=== PATIENT | female | born 1985 | race Caucasian/White ===

== ENCOUNTER 2019-12-21 16:22 | Inpatient (IN) ==
[2019-12-21] MEDS ORDERED: hydrALAZINE 20 MG/1 ML VIAL IV PRN (18:25)
[2019-12-21] MEDS ORDERED: SIMETHICONE CHEW 125 MG TABLET PO PRN (18:25)
[2019-12-21] MEDS ORDERED: ALUMINUM/MAGNES/SIMETH MAX STR 30 ML UDCUP PO PRN (18:25)
[2019-12-21] MEDS ORDERED: ACETAMINOPHEN 325 MG TABLET PO PRN (18:25)
[2019-12-21] MEDS ORDERED: diphenhydrAMINE CAP 25 MG CAPSULE PO PRN (18:25)
[2019-12-21] MEDS ORDERED: PROMETHAZINE 25 MG/1 ML VIAL IM PRN (18:25)
[2019-12-21] MEDS ORDERED: guaiFENesin/DM ER 600-30 MG TABLET PO PRN (18:25)
[2019-12-21] MEDS ORDERED: DEXTROSE 50% 25 GM/50 ML VIAL IV PRN (18:25)
[2019-12-21] MEDS ORDERED: GLUCAGON 1 MG VIAL IM PRN (18:25)
[2019-12-21] MEDS ORDERED: CALCIUM CARBONATE CHEW 500 MG TABLET PO PRN (18:25)
[2019-12-21] MEDS ORDERED: NICOTINE 21 MG/24 HR PATCH TRANSDERM PRN (18:25)
[2019-12-21 19:08] LABS: Eosinophils % 1.8 % (0.00-10.9); Hematocrit 33.6 VOL% (35.7-47.0); Hemoglobin 10.5 GM/DL (12.0-16.0); Immature Granulocytes % 3.6 %; Immature Granulocytes Absolute 0.04 #; Lymphocytes # 0.5 10*3/uL (1.4-4.0); Lymphocytes % 42.9 % (21.3-54.2); Mean Corpuscular HGB Conc 31.3 GM/DL (32-36); Mean Corpuscular Volume 81.4 FL (87-102); Mean Platelet Volume 10.3 FL (9.6-12.0); Monocytes % 6.3 % (1.7-12.7); Neutrophils % 45.4 % (38.7-73.9); Platelet Count 234 T/CUMM (130-400); Red Blood Count 4.13 MC/CUMM (3.8-5.5); Red Cell Distribution Width 15.5 % (9.3-17.3); White Blood Count 1.1 T/CUMM (4-12)
[2019-12-21 19:24] LABS: Osmolality,Calculated 272.7 MOS/KG (273-304)
[2019-12-21 19:30] LABS: Band Neutrophils 8 % (0-10); Eosinophils 2 % (0-10); Lymphocytes 47 % (20-55); Segmented Neutrophils 38 % (50-85); Total Cells Counted 100
[2019-12-21 19:31] LABS: Anisocytosis Slight; Burr Cells Slight; Microcytosis Slight; Platelet Estimate Normal; Poikilocytosis Slight; Reactive Lymphocytes Slight
[2019-12-21] MEDS ORDERED: POTASSIUM CHLORIDE RIDER 10 MEQ in PREMIX 1 EACH IV PRN (19:49)
[2019-12-21] MEDS ORDERED: cefTRIAXone 1,000 MG in SYRINGE 1 EACH IV SCH (20:00)
[2019-12-21] MEDS: SODIUM CHLORIDE 0.9% 1,000 ML IV SCH (21:32)
[2019-12-21] MEDS: DOCUSATE SODIUM 100 MG CAPSULE PO SCH (21:33)
[2019-12-21] MEDS: MEROPENEM 500 MG in SODIUM CHLORIDE 0.9% 100 ML IV SCH (21:33)
[2019-12-21] MEDS: ENOXAPARIN 40 MG/0.4 ML SYRINGE SUBCUT SCH (21:33)
[2019-12-21] MEDS: VANCOMYCIN INJ 1,000 MG in SODIUM CHLORIDE 0.9% 250 ML IV SCH (23:45)
[2019-12-22] MEDS: MEROPENEM 500 MG in SODIUM CHLORIDE 0.9% 100 ML IV SCH ×4 (04:15→20:47)
[2019-12-22 05:11] LABS: Apearance,Urine CLOUDY (Clear); Bacteria,Urine Occasional /HPF (Few); Bilirubin,Urine Negative (Negative); Blood, Urine Large mg/dL (Negative); Glucose,Urine (UA) Negative (Negative); Ketones,Urine Negative (Negative); Mucus,Urine Occasional /LPF (Occasional); Nitrite,Urine Negative (Negative); Protein,Urine 30 MG/DL; RBC,Urine 2 /HPF (0-4); Squamous Epithelial Cell,Urine Occasional /HPF (0-10); Urine Specific Gravity 1.018 (1.001-1.035); WBC,Urine 23 /HPF (0-6)
[2019-12-22 05:12] LABS: Urine Color Yellow (Yellow)
[2019-12-22 05:36] LABS: Barbiturates Screen,Urine Negative (Negative); Benzodiazepines Screen,Urine Negative (Negative); Cannabinoid Screen,Urine Negative (Negative); Opiate Screen,Urine Negative (Negative); Phencyclidine Screen,Urine Negative (Negative)
[2019-12-22 05:44] LABS: Basophils % 0.6 % (0.0-0.8); Eosinophils # 0.2 10*3/uL (0.0-0.87); Eosinophils % 8.6 % (0.00-10.9); Hemoglobin 9.3 GM/DL (12.0-16.0); Immature Granulocytes % 1.7 %; Immature Granulocytes Absolute 0.03 #; Lymphocytes # 0.6 10*3/uL (1.4-4.0); Lymphocytes % 35.4 % (21.3-54.2); Mean Corpuscular HGB Conc 32.1 GM/DL (32-36); Mean Platelet Volume 10.8 FL (9.6-12.0); Monocytes % 4.6 % (1.7-12.7); Neutrophils % 49.1 % (38.7-73.9); Platelet Count 199 T/CUMM (130-400); Red Blood Count 3.58 MC/CUMM (3.8-5.5); Red Cell Distribution Width 15.7 % (9.3-17.3); White Blood Count 1.8 T/CUMM (4-12)
[2019-12-22 06:20] LABS: Band Neutrophils 15 % (0-10); Eosinophils 3 % (0-10); Lymphocytes 38 % (20-55); Platelet Estimate Normal; Segmented Neutrophils 41 % (50-85); Total Cells Counted 100
[2019-12-22 06:21] LABS: Hypochromasia Slight
[2019-12-22 06:22] LABS: Bilirubin,Total 2.4 MG/DL (0.2-1.0); Calcium 6.7 MG/DL (8.5-10.1); Total Protein 5.1 G/DL (6.4-8.3)
[2019-12-22] MEDS: SODIUM CHLORIDE 0.9% 1,000 ML IV SCH ×3 (08:38→20:47)
[2019-12-22] MEDS: DOCUSATE SODIUM 100 MG CAPSULE PO SCH ×2 (10:10→20:48)
[2019-12-22] MEDS: PANTOPRAZOLE 40 MG TABLET PO SCH (10:10)
[2019-12-22] MEDS: VANCOMYCIN INJ 1,000 MG in SODIUM CHLORIDE 0.9% 250 ML IV SCH ×2 (11:20→21:48)
[2019-12-22 12:14] LABS: HIV Antigen/Antibody Result Nonreactive (Nonreactive); Hepatitis B Core IgM Quant 0.23 Index; Hepatitis B Surface Ag Quant < 0.10 Index; Hepatitis B Surface Ag Result Negative (Negative); Hepatitis C Virus Ab Quant 0.08 Index; Hepatitis C Virus Ab Result Negative (Negative)
[2019-12-22] MEDS: ALPRAZolam 0.25 MG TABLET PO PRN (14:25)
[2019-12-22] MEDS: POTASSIUM CHLORIDE 20 MEQ TABLET PO PRN ×4 (15:26→22:49)
[2019-12-22] MEDS: ONDANSETRON 4 MG/2 ML VIAL IV PRN (18:10)
[2019-12-22] MEDS: ENOXAPARIN 40 MG/0.4 ML SYRINGE SUBCUT SCH (20:47)
[2019-12-22] MEDS: ZALEPLON 5 MG CAPSULE PO PRN (22:49)
[2019-12-23] MEDS: MEROPENEM 500 MG in SODIUM CHLORIDE 0.9% 100 ML IV SCH ×4 (02:23→20:47)
[2019-12-23] MEDS: SODIUM CHLORIDE 0.9% 1,000 ML IV SCH ×3 (03:26→21:37)
[2019-12-23 06:31] LABS: Basophils % 0.6 % (0.0-0.8); Eosinophils # 0.1 10*3/uL (0.0-0.87); Eosinophils % 2.6 % (0.00-10.9); Hematocrit 30.5 VOL% (35.7-47.0); Hemoglobin 9.5 GM/DL (12.0-16.0); Immature Granulocytes % 0.6 %; Immature Granulocytes Absolute 0.02 #; Lymphocytes # 1.5 10*3/uL (1.4-4.0); Lymphocytes % 48.2 % (21.3-54.2); Mean Corpuscular HGB Conc 31.1 GM/DL (32-36); Mean Corpuscular Volume 79.8 FL (87-102); Mean Platelet Volume 11.3 FL (9.6-12.0); Monocytes % 4.9 % (1.7-12.7); Neutrophils % 43.1 % (38.7-73.9); Platelet Count 224 T/CUMM (130-400); Red Blood Count 3.82 MC/CUMM (3.8-5.5); Red Cell Distribution Width 15.7 % (9.3-17.3); White Blood Count 3.1 T/CUMM (4-12)
[2019-12-23 06:39] LABS: INR 1.4; PT Patient Result 14.8 SECS (9.8-11.9)
[2019-12-23 06:49] LABS: Hypochromasia 1+
[2019-12-23 06:50] LABS: Burr Cells Slight; Microcytosis Slight; Platelet Estimate Normal
[2019-12-23 07:11] LABS: Bilirubin,Total 1.3 MG/DL (0.2-1.0); Calcium 7.2 MG/DL (8.5-10.1); Total Protein 5.1 G/DL (6.4-8.3)
[2019-12-23] MEDS: DOCUSATE SODIUM 100 MG CAPSULE PO SCH ×2 (08:51→20:48)
[2019-12-23] MEDS: PANTOPRAZOLE 40 MG TABLET PO SCH (08:51)
[2019-12-23] MEDS: ALPRAZolam 0.25 MG TABLET PO PRN (10:21)
[2019-12-23] MEDS: POTASSIUM CHLORIDE 20 MEQ TABLET PO PRN ×2 (10:21→12:38)
[2019-12-23] MEDS: VANCOMYCIN INJ 1,000 MG in SODIUM CHLORIDE 0.9% 250 ML IV SCH ×2 (10:21→21:36)
[2019-12-23] MEDS: ONDANSETRON 4 MG/2 ML VIAL IV PRN ×2 (15:46→20:47)
[2019-12-23] MEDS: ENOXAPARIN 40 MG/0.4 ML SYRINGE SUBCUT SCH (20:46)
[2019-12-23] MEDS: ZALEPLON 5 MG CAPSULE PO PRN (20:48)
[2019-12-24] MEDS: SODIUM CHLORIDE 0.9% 1,000 ML IV SCH ×3 (02:19→19:15)
[2019-12-24] MEDS: MEROPENEM 500 MG in SODIUM CHLORIDE 0.9% 100 ML IV SCH ×4 (02:19→20:36)
[2019-12-24] MEDS: ONDANSETRON 4 MG/2 ML VIAL IV PRN (07:01)
[2019-12-24 08:02] LABS: Basophils % 0.7 % (0.0-0.8); Eosinophils # 0.1 10*3/uL (0.0-0.87); Eosinophils % 1.7 % (0.00-10.9); Hematocrit 30.4 VOL% (35.7-47.0); Hemoglobin 9.7 GM/DL (12.0-16.0); Immature Granulocytes % 0.3 %; Immature Granulocytes Absolute 0.01 #; Lymphocytes # 1.7 10*3/uL (1.4-4.0); Lymphocytes % 56.8 % (21.3-54.2); Mean Corpuscular HGB Conc 31.9 GM/DL (32-36); Mean Corpuscular Volume 79.8 FL (87-102); Mean Platelet Volume 11.5 FL (9.6-12.0); Monocytes % 6.3 % (1.7-12.7); Neutrophils % 34.2 % (38.7-73.9); Platelet Count 224 T/CUMM (130-400); Red Blood Count 3.81 MC/CUMM (3.8-5.5); Red Cell Distribution Width 16.1 % (9.3-17.3)
[2019-12-24] MEDS: DOCUSATE SODIUM 100 MG CAPSULE PO SCH ×2 (08:05→20:36)
[2019-12-24] MEDS: PANTOPRAZOLE 40 MG TABLET PO SCH (08:07)
[2019-12-24 08:09] LABS: INR 1.2
[2019-12-24 08:27] LABS: Atypical Lymphocytes Few; Band Neutrophils 5 % (0-10); Hypochromasia 1+; Lymphocytes 56 % (20-55); Segmented Neutrophils 29 % (50-85); Total Cells Counted 100
[2019-12-24 08:28] LABS: Acanthocytes Few; Burr Cells Slight; Microcytosis 1+; Platelet Estimate Normal
[2019-12-24 08:29] LABS: Albumin 2.1 G/DL (3.4-5.0); Bilirubin,Total 1.6 MG/DL (0.2-1.0); Calcium 7.5 MG/DL (8.5-10.1); Osmolality,Calculated 270.7 MOS/KG (273-304); Total Protein 5.2 G/DL (6.4-8.3)
[2019-12-24 08:30] LABS: Albumin 2.1 G/DL (3.4-5.0); Bilirubin,Direct 1.41 MG/DL (0.0-0.20); Bilirubin,Indirect 0.3 MG/DL (0.0-1.0); Bilirubin,Total 1.7 MG/DL (0.2-1.0); Calcium 7.3 MG/DL (8.5-10.1); Osmolality,Calculated 268.8 MOS/KG (273-304); Total Protein 5.1 G/DL (6.4-8.3)
[2019-12-24] MEDS: VANCOMYCIN INJ 1,000 MG in SODIUM CHLORIDE 0.9% 250 ML IV SCH (08:57)
[2019-12-24] MEDS: ENOXAPARIN 40 MG/0.4 ML SYRINGE SUBCUT SCH (20:36)
[2019-12-24] MEDS: ZALEPLON 5 MG CAPSULE PO PRN (20:36)
[2019-12-25] MEDS: SODIUM CHLORIDE 0.9% 1,000 ML IV SCH (03:22)
[2019-12-25] MEDS: MEROPENEM 500 MG in SODIUM CHLORIDE 0.9% 100 ML IV SCH ×2 (03:22→08:40)
[2019-12-25 05:48] LABS: Basophils % 0.8 % (0.0-0.8); Eosinophils # 0.1 10*3/uL (0.0-0.87); Eosinophils % 3.1 % (0.00-10.9); Hemoglobin 9.5 GM/DL (12.0-16.0); Immature Granulocytes % 0.4 %; Immature Granulocytes Absolute 0.01 #; Lymphocytes # 1.3 10*3/uL (1.4-4.0); Lymphocytes % 51.7 % (21.3-54.2); Mean Corpuscular HGB Conc 31.7 GM/DL (32-36); Mean Corpuscular Volume 80.2 FL (87-102); Mean Platelet Volume 11.8 FL (9.6-12.0); Monocytes % 6.6 % (1.7-12.7); Neutrophils % 37.4 % (38.7-73.9); Platelet Count 213 T/CUMM (130-400); Red Blood Count 3.74 MC/CUMM (3.8-5.5); Red Cell Distribution Width 16.2 % (9.3-17.3); White Blood Count 2.6 T/CUMM (4-12)
[2019-12-25 06:08] LABS: INR 1.2; PT Patient Result 12.6 SECS (9.8-11.9)
[2019-12-25 06:09] LABS: Eosinophils 3 % (0-10); Hypochromasia 1+; Lymphocytes 55 % (20-55); Microcytosis Slight; Platelet Estimate Adequate; Segmented Neutrophils 37 % (50-85); Total Cells Counted 100
[2019-12-25 06:10] LABS: Atypical Lymphocytes Few
[2019-12-25 06:14] LABS: Calcium 7.8 MG/DL (8.5-10.1); Osmolality,Calculated 270.7 MOS/KG (273-304)
[2019-12-25 06:27] LABS: Albumin 1.9 G/DL (3.4-5.0); Bilirubin,Total 1.8 MG/DL (0.2-1.0); Calcium 7.7 MG/DL (8.5-10.1); Osmolality,Calculated 270.7 MOS/KG (273-304)
[2019-12-25 06:27] LABS: Albumin 1.9 G/DL (3.4-5.0); Bilirubin,Direct 1.45 MG/DL (0.0-0.20); Bilirubin,Indirect 0.9 MG/DL (0.0-1.0); Bilirubin,Total 2.3 MG/DL (0.2-1.0); Calcium 7.6 MG/DL (8.5-10.1); Osmolality,Calculated 272.5 MOS/KG (273-304)
[2019-12-25] MEDS: PANTOPRAZOLE 40 MG TABLET PO SCH (08:40)
[2019-12-25] MEDS: POTASSIUM CHLORIDE 20 MEQ TABLET PO PRN (08:40)
[2019-12-25] MEDS: DOCUSATE SODIUM 100 MG CAPSULE PO SCH (08:40)
[2019-12-25] MEDS: ONDANSETRON 4 MG/2 ML VIAL IV PRN (08:45)
[2019-12-25 11:36] VITALS: BP 104/66
== END 2019-12-25 16:00 | disposition home or self-care (01) | DRG 871 ==
LOC: N.3E → SUATTDRO 18:05 → OBSVTOIN 18:05
PROVIDERS: ADMIT Internal Medicine; ATTEND Family Medicine